=== PATIENT | male | born 1975 | race Caucasian/White ===

== ENCOUNTER 2019-09-02 13:43 | Emergency (ER) | payer BC ==
--- OUTSIDE RECORDS SUMMARY | 2019-09-02 13:45 | XMS REPORT | Summary of Care ---
:1975 Author Organization [facility] - Health Address [address] [place] [address] Care Team Providers Name Role Phone Horacio Paulson MD Primary Care Provider Encounter Details Date Type Department Care Team Description 08/02/2019 Orders Only [facility] Doctor Unassigned, No [address] [facility] [place] [address] [address] [place] [id number] Allergies No Known Allergiesdocumented as of this encounter (statuses as of 08/02/2019) Medications Medication Sig Dispensed Refills Start Date End Date Status HYDROcodone-acetamin Take 1 tablet by 40 tablet 0 01/31/2016 Active ophen (NORCO) 10-325 mouth every 6 (six) mg tablet hours as needed for Pain (scale 4-6). tadalafil (CIALIS) Take 1 tablet by 8 tablet 5 03/15/2016 Active 20 mg tablet mouth as needed for Erectile dysfunction (1 po 1 h prior to sexual activity). fluocinonide (LIDEX) Apply to area(s) 2 15 g 1 03/15/2016 Active 0.05 % cream (two) times daily. azithromycin 250 mg Take 1 tablet by 1 Package 1 07/21/2017 Active tablet mouth SEE-INSTRUCTIONS. Take 500 mg day 1, then 250 mg days 2 to 5. hydrocodone-chlorphe Take 5 mL by mouth 4 oz 0 07/21/2017 Active niramine (TUSSIONEX every 12 (twelve) PENNKINETIC ER) 10-8 hours as needed for mg/5 mL suspension Cough. indomethacin 50 mg Take 1 capsule by 30 capsule 0 07/21/2017 Active capsule mouth 3 (three) times daily with meals. documented as of this encounter (statuses as of 08/02/2019) Active Problems Not on filedocumented as of this encounter (statuses as of 08/02/2019) Social History Tobacco Use Types Packs/Day Years Used Date Never Smoker Alcohol Use Drinks/Week oz/Week Comments Not Asked 0 Standard drinks or equivalent 0.0 Sex Assigned at Date Recorded Not on file Job Start Date Occupation Industry Not on file Not on file Not on file Travel History Travel Start Travel End No recent travel history available. documented as of this encounter Last Filed Vital Signs Not on filedocumented in this encounter Plan of Treatment Date Type Specialty Care Team Description 08/02/2019 Office Visit Family Medicine Horacio Paulson MD [address] [place] [phone] Health Maintenance Due Date Last Done Comments DTaP,Tdap,and Td Vaccines (1 - 02/19/1988 Tdap) INFLUENZA VACCINE (#1) 2019 PNEUMOCOCCAL 0-64 YEARS COMBINED Aged Out No longer eligible based on SERIES patient's age to complete this topic documented as of this encounter Procedures Procedure Name Priority Date/Time Associated Diagnosis Comments ASSIGNMENT OF BENEFITS Routine 08/02/2019 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
--- OUTSIDE RECORDS SUMMARY | 2019-09-02 13:45 | XMS REPORT | Summary of Care ---
:1975 Author Organization [facility] Address [address] [place] [address] Care Team Providers Name Role Phone Horacio Paulson MD Primary Care Provider Reason for Visit Reason Comments Follow-up Encounter Details Date Type Department Care Team Description 08/02/2019 Office Visit [facility] Horacio Paulson MD Anxiety (Primary Dx); Medicine - [address] Erectile dysfunction, unspecified erectile dysfunction type [address] [place] [phone] Allergies No Known Allergiesdocumented as of this encounter (statuses as of 08/02/2019) Medications Medication Sig Dispensed Refills Start End Date Status Date HYDROcodone-aceta Take 1 tablet by 40 tablet 0 Active minophen (NORCO) mouth every 6 6 10-325 mg tablet (six) hours as needed for Pain (scale 4-6). fluocinonide Apply to 15 g 1 Active (LIDEX) 0.05 % area(s) 2 (two) 6 cream times daily. azithromycin 250 Take 1 tablet by 1 Package 1 Active mg tablet mouth 8 SEE-INSTRUCTIONS . Take 500 mg day 1, then 250 mg days 2 to 5. hydrocodone-chlor Take 5 mL by 4 oz 0 Active pheniramine mouth every 12 8 (TUSSIONEX (twelve) hours PENNKINETIC ER) as needed for 10-8 mg/5 mL Cough. suspension indomethacin 50 Take 1 capsule 30 capsule 0 Active mg capsule by mouth 3 8 (three) times daily with meals. FLUoxetine 20 mg Take 1 tablet by 90 tablet 1 Active tabletIndications mouth daily. 0 : Anxiety tadalafil Take 1 tablet by 8 tablet 11 Active (CIALIS) 20 mg mouth as needed 0 tabletIndications for Erectile : Erectile dysfunction (1 dysfunction, po 1 h prior to unspecified sexual erectile activity). dysfunction type tadalafil Take 1 tablet by 8 tablet 5 08/02/19 Discontinued (CIALIS) 20 mg mouth as needed 6 20 (Reorder) tablet for Erectile dysfunction (1 po 1 h prior to sexual activity). FLUoxetine 20 mg Take 20 mg by 0 08/02/19 Discontinued tablet mouth daily. 20 (Reorder) documented as of this encounter (statuses as of 08/02/2019) Active Problems Not on filedocumented as of this encounter (statuses as of 08/02/2019) Social History Tobacco Use Types Packs/Day Years Used Date Never Smoker Smokeless Tobacco: Current User Alcohol Use Drinks/Week oz/Week Comments Not Currently 0 Standard drinks or equivalent 0.0 Sex Assigned at Date Recorded Not on file Job Start Date Occupation Industry Not on file Not on file Not on file Travel History Travel Start Travel End No recent travel history available. documented as of this encounter Last Filed Vital Signs Vital Sign Reading Time Taken Comments Blood Pressure 110/70 08/02/2019 8:05 AM LUGGAGE LINER Pulse 63 08/02/2019 8:05 AM LUGGAGE LINER Temperature - - Respiratory Rate - - Oxygen Saturation 98% 08/02/2019 8:05 AM LUGGAGE LINER Inhaled Oxygen Concentration - - Weight 148.8 kg (328 lb) 08/02/2019 8:05 AM LUGGAGE LINER Height 182.9 cm (6') 08/02/2019 8:05 AM LUGGAGE LINER Body Mass Index 44.48 08/02/2019 8:05 AM LUGGAGE LINER documented in this encounter Progress Notes Horacio Paulson MD - 08/02/2019 8:00 AM CST Cc: anxiety Chief Complaint Patient presents with Follow-up Brodie Styles is a 44 year old male. Anxiety, anger management Allergies Brodie has No Known Allergies. Medications Outpatient Medications Prior to Visit Medication Sig Dispense Refill FLUoxetine 20 mg tablet Take 20 mg by mouth daily. azithromycin 250 mg tablet Take 1 tablet by mouth SEE-INSTRUCTIONS. Take 500 mg day 1, then 250 mg days 2 to 5. 1 Package 1 hydrocodone-chlorpheniramine (TUSSIONEX PENNKINETIC ER) 10-8 mg/5 mL suspension Take 5 mL by mouth every 12 (twelve) hours as needed for Cough. 4 oz 0 indomethacin 50 mg capsule Take 1 capsule by mouth 3 (three) times daily with meals. 30 capsule 0 fluocinonide (LIDEX) 0.05 % cream Apply to area(s) 2 (two) times daily. 15 g 1 tadalafil (CIALIS) 20 mg tablet Take 1 tablet by mouth as needed for Erectile dysfunction (1 po 1 h prior to sexual activity). 8 tablet 5 HYDROcodone-acetaminophen (NORCO) 10-325 mg tablet Take 1 tablet by mouth every 6 (six) hours asneeded for Pain (scale 4-6). 40 tablet 0 No facility-administered medications prior to visit. Histories No past medical history on file. No past surgical history on file. Social History Socioeconomic History Marital status: Spouse name: Not on file Number of children: Not on file Years of education: Not on file Highest education level: Not on file Occupational History Not on file Social Needs Financial resource strain: Not on file Food insecurity: Worry: Not on file Inability: Not on file Transportation needs: Medical: Not on file Non-medical: Not on file Tobacco Use Smoking status: Never Smoker Smokeless tobacco: Current User Substance and Sexual Activity Alcohol use: Not Currently Alcohol/week: 0.0 standard drinks Drug use: Never Sexual activity: Not on file Lifestyle Physical activity: Days per week: Not on file Minutes per session: Not on file Stress: Not on file Relationships Social connections: Talks on phone: Not on file Gets together: Not on file Attends sikhism service: Not on file Active member of club or organization: Not on file Attends meetings of clubs or organizations: Not on file Relationship status: Not on file Intimate partner violence: Fear of current or ex partner: Not on file Emotionally abused: Not on file Physically abused: Not on file Forced sexual activity: Not on file Other Topics Concern Not on file Social History Narrative Not on file No family history on file. Review of Systems Vital Signs BP 110/70 | Pulse 63 | Ht 6' (1.829 m) | Wt 328 lb (148.8 kg) | SpO2 98% | BMI 44.48 kg/m Physical Exam Constitutional: He is oriented to person, place, and time. He appears well- developed and well-nourished. HENT: Head: Normocephalic. Eyes: Pupils are equal, round, and reactive to light. EOM are normal. Cardiovascular: Normal rate, regular rhythm and normal heart sounds. Pulmonary/Chest: Effort normal and breath sounds normal. Abdominal: Soft. Musculoskeletal: Normal range of motion. Neurological: He is alert and oriented to person, place, and time. Vitals reviewed. Assessment/Plan Anxiety. Fluoxitine ED, cialis This visit did not involve counseling and coordination that comprised more than 50% of the visit time.Electronically signed by Horacio Paulson MD at 2019 8:14 AM CSTdocumented in this encounter Plan of Treatment Health Maintenance Due Date Last Done Comments DTaP,Tdap,and Td Vaccines (1 - 02/19/1988 Tdap) INFLUENZA VACCINE (#1) 2019 PNEUMOCOCCAL 0-64 YEARS COMBINED Aged Out No longer eligible based on SERIES patient's age to complete this topic documented as of this encounter Results Not on filedocumented in this encounter Visit Diagnoses Diagnosis Anxiety - Primary Anxiety state, unspecified Erectile dysfunction, unspecified erectile dysfunction type documented in this encounter Insurance Payer Benefit Plan Subscriber ID Effective Dates Phone Address Type / Group [facility] [id number] 2017-Abiola [phone] [address] PPO/POS [place] t [id number] [place] [address] documented as of this encounter"
--- OUTSIDE RECORDS SUMMARY | 2019-09-02 13:45 | XMS REPORT | Summary of Care ---
:1975 Author Organization [facility] Address [address] [place] [address] Care Team Providers Name Role Phone Horacio Paulson MD Primary Care Provider Reason for Visit Reason Comments Follow-up Encounter Details Date Type Department Care Team Description 08/02/[address] [facility] Family Horacio Paulson MD Anxiety (Primary Dx); Medicine - [address] Erectile dysfunction, unspecified erectile dysfunction type [address] [place] [phone] Allergies No Known Allergiesdocumented as of this [...] Comments Blood Pressure 110/70 08/02/2019 8:05 AM EQUIPMENT SERVICES ASSOCIATE Pulse 63 08/02/2019 8:05 AM EQUIPMENT SERVICES ASSOCIATE Temperature - - Respiratory Rate - - Oxygen Saturation 98% 08/02/2019 8:05 AM EQUIPMENT SERVICES ASSOCIATE Inhaled Oxygen Concentration - - Weight 148.8 kg (328 lb) 08/02/2019 8:05 AM EQUIPMENT SERVICES ASSOCIATE Height 182.9 cm (6') 08/02/2019 8:05 AM EQUIPMENT SERVICES ASSOCIATE Body Mass Index 44.48 08/02/2019 8:05 AM EQUIPMENT SERVICES ASSOCIATE documented in this encounter Progress Notes Horacio [...] file Gets together: Not on file Attends protestant service: Not on file Active member of [...] Effective Dates Phone Address Type / Group [facility] [id number] 2017-Abiola [phone] [address] PPO/POS [place] t [id number] [place] [address] documented as of this encounter"
--- OUTSIDE RECORDS SUMMARY | 2019-09-02 13:45 | XMS REPORT | Summary of Care ---
:1975 Author Organization [facility] Address [address] [place] [address] Care Team Providers Name Role Phone Horacio Paulson MD Primary Care Provider Reason for Visit Reason Comments Authorization Encounter Details Date Type Department Care Team Description 08/09/2019 Telephone [facility] Family Horacio Paulson MD Authorization Medicine - [address] [place] [address] [place] [phone] Allergies No Known Allergiesdocumented as of this encounter (statuses as of 08/09/2019) Medications Medication Sig Dispensed Refills Start Date End Date Status HYDROcodone-acetamin Take 1 tablet by 40 tablet 0 01/31/2016 Active ophen (NORCO) 10-325 mouth every 6 (six) mg tablet hours as needed for Pain (scale 4-6). fluocinonide (LIDEX) Apply to area(s) 2 15 [...] mouth 3 (three) times daily with meals. FLUoxetine 20 mg Take 1 tablet by 90 tablet 1 08/02/2019 Active tabletIndications: mouth daily. Anxiety tadalafil (CIALIS) Take 1 tablet by 8 tablet 11 08/02/2019 Active 20 mg mouth as needed for tabletIndications: Erectile Erectile dysfunction (1 po 1 dysfunction, h prior to sexual unspecified erectile activity). dysfunction type documented as of this encounter (statuses as of 08/09/2019) Active Problems Not on filedocumented as of this encounter (statuses as of 08/09/2019) Social History Tobacco Use Types Packs/Day Years [...] filedocumented in this encounter Plan of Treatment Health [...] Effective Dates Phone Address Type / Group [facility] [id number] 2017-Abiola [phone] [address] PPO/POS [place] t [id number] [place] [address] documented as of this encounter
--- OUTSIDE RECORDS SUMMARY | 2019-09-02 13:45 | XMS REPORT ---
:1975 Author Organization [facility] Address [address] [place] [address] Dr. Fonseca [address] [place] [address] Care Team Providers Name Role Phone Unavailable Unavailable Unavailable Problems This patient has no known problems. Allergies, Adverse Reactions, Alerts This patient has no known allergies or adverse reactions. Medications This patient has no known medications.
--- NOTE | 2019-09-02 15:10 | RAD REPORT ---
EXAM DESCRIPTION: CT - Stone Protocol - 09/02/2019 2:53 pm CLINICAL HISTORY: Flank pain. FLANK PAIN COMPARISON: No comparisons TECHNIQUE: Axial images were obtained without oral or IV contrast. Lack of contrast limits solid org an and vascular assessment. The [id number] spans the entirety of the system partially obscuring uppermost abdomen and lung bases. Coronal reformatted images were obtained and reviewed. All CT scans are performed using dose optimization technique as appropriate and may include automated exposure control or mA/KV adjustment according to patient size. FINDINGS: The lower lung gracia are clear. Imaged portions of the liver and spleen show no suspicious findings on non-contrast imaging. The panc reas and adrenal glands are normal. No pathologic lymphadenopathy in the abdomen or pelvis. 10 mm calculus (1170 HU) is present at the right pelvic inlet resulting in mild right hydronephrosis. 6 cm cyst is present right kidney midpole. No bowel obstruction, free air, free fluid or abscess. Normal appendix noted.Small fat containing umb ilical hernia. Chronic bilateral spondylolysis at L4-5 with minimal anterolisthesis. IMPRESSION: 10 mm stone right pelvic inlet resulting in mild right hydronephrosis.
[2019-09-02 15:14] LABS: Urine Blood TRACE (NEG); Urine Glucose NEGATIVE (NEG); Urine Protein NEGATIVE (NEG); Urine pH 6.5 (5.0-7.0)
[2019-09-02] MEDS ORDERED: ONDANSETRON 4 MG/2 ML VIAL ONE (15:53)
[2019-09-02] MEDS ORDERED: Magnesium Sulfate 2gm IVPB 2 G/50 ML BAG IV ONE (15:53)
[2019-09-02] MEDS ORDERED: TAMSULOSIN 0.4 MG SR CAP ONE (15:53)
[2019-09-02] MEDS ORDERED: MORPHINE 4 MG/ML SYR ONE (15:53)
[2019-09-02 16:09] LABS: Absolute Lymphocytes (CBC) 1.5 K/uL (0.7-4.9); Basophils % 0.6 % (0-1.3); Hematocrit 44.6 % (39.6-49.0); Lymphocytes % 12.6 % (15.3-44.8); MPV 7.7 fL (7.6-11.3); RBC Red Blood Cell Count 4.85 M/uL (4.33-5.43)
[2019-09-02 16:21] LABS: Potassium 3.5 mmol/L (3.5-5.1)
--- NOTE | 2019-09-02 17:17 | ER ---
Nurse's Notes [facility] Name: Brodie Styles Age: 44 yrs Sex: Male : 1975 Arrival Date: 09/02/2019 Time: 13:49 Bed 13 Private MD: Horacio Paulson S Diagnosis: Calculus of kidney and ureter Presentation: 09/01 14:01 Chief complaint: Patient states: Right lower back for 4 days. History of kidney stones, ll1 usually passes on its own. No fever. Coronavirus screen: The patient has NOT traveled to a country currently being monitored by the [facility] within the last 14 days. Proceed with normal triage procedures. Ebola Screen: Patient denies travel to an Ebola-affected area in the 21 days before illness onset. Risk Assessment: Do you want to hurt yourself or someone else? Patient reports no desire to harm self or others. 14:01 Method Of Arrival: Ambulatory ll1 14:01 Acuity: JULIANNA 3 ll1 Historical: - Allergies: 14:03 No Known Allergies; ll1 - Immunization history:: Flu vaccine is not up to date. Screenin:30 Abuse screen: Denies threats or abuse. Nutritional screening: No deficits noted. em Tuberculosis screening: No symptoms or risk factors identified. Fall Risk None identified. Assessment: 15:35 General: Appears in no apparent distress. comfortable, Behavior is calm, cooperative, em appropriate for age, Reports chills for >3 days, Denies fever. Pain: Complains of pain in right low back Pain currently is 2 out of 10 on a pain scale. at worst was 10 out of 10 on a pain scale. Neuro: Level of Consciousness is awake, alert, obeys commands, Oriented to person, place, time, situation, Appropriate for age. Cardiovascular: Capillary refill < 3 seconds Patient's skin is warm and dry. Respiratory: Airway is patent Respiratory effort is even, unlabored, Respiratory pattern is regular, symmetrical. GI: Bowel sounds present X 4 quads. Abd is soft and non tender X 4 quads. Patient currently denies nausea, vomiting. : Denies burning with urination. Derm: Skin is intact, is healthy with good turgor, Skin is pink, warm \T\ dry. Musculoskeletal: Capillary refill < 3 seconds, Range of motion: intact in all extremities. Vital Signs: 14:01 BP 150 / 96; Pulse 72; Resp 18; Temp 98.3; Pulse Ox 98% ; Weight 145.15 kg; Height 6 ll1 ft. (182.88 cm); Pain 1/10; 16:00 BP 135 / 90; Pulse 58; Resp 18; Pulse Ox 99% on R/A; Pain 2/10; em 16:45 BP 143 / 90; Pulse 83; Resp 18; Pulse Ox 99% on R/A; em 14:01 Body Mass Index 43.40 (145.15 kg, 182.88 cm) ll1 ED Course: 13:49 Patient arrived in ED. mr 13:49 Horacio Paulson MD is Private Physician. mr 14:03 Triage completed. ll1 14:03 Arm band placed on. ll1 14:33 Nikole Sunshine FNP-C [facility]. kb 14:33 Jose Clay MD is Attending Physician. kb 14:54 CT Stone Protocol In Process Unspecified. EDMS 15:00 Urine collected: clean catch specimen, clear. dh3 15:10 Abdirashid Shields, RN is Primary Nurse. em 15:30 Patient has correct armband on for positive identification. Bed in low position. Call em light in reach. Adult w/ patient. Pulse ox on. NIBP on. 15:57 Initial lab(s) drawn, by me, sent to lab. Inserted saline lock: 20 gauge in right em antecubital area, using aseptic technique. Blood collected. 17:16 Raleigh Fitzgerald MD is Referral Physician. kb 17:27 Abdomen 1 View (KUB) XRAY In Process Unspecified. EDMS 17:37 No provider procedures requiring assistance completed. IV discontinued, intact, em bleeding controlled, No redness/swelling at site. Pressure dressing applied. Administered Medications: 15:58 Drug: Zofran (Ondansetron) 4 mg Route: IVP; Site: right antecubital; em 16:30 Follow up: Response: No adverse reaction em 16:00 Drug: morphine 4 mg Route: IVP; Site: right antecubital; em 16:30 Follow up: Response: No adverse reaction; Marked relief of symptoms; Pain is decreased; em RASS: Alert and Calm (0) 16:00 Drug: Flomax 0.4 mg Route: PO; em 17:38 Follow up: Response: No adverse reaction em 16:03 Drug: Magnesium Sulfate 2 grams Route: IVPB; Infused Over: 1 hrs; Site: right em antecubital; 17:38 Follow up: Response: No adverse reaction; IV Status: Completed infusion; IV Intake: 50mlem Intake: 17:38 IV: 50ml; Total: 50ml. em Outcome: 17:16 Discharge ordered by MD. espinoza 17:37 Discharged to home ambulatory, with family. em 17:37 Condition: good 17:37 Discharge instructions given to patient, family, Instructed on discharge instructions, follow up and referral plans. no drinking with medication, no driving heavy equipment, medication usage, Demonstrated understanding of instructions, follow-up care, medications, Prescriptions given X 4. 17:39 Patient left the ED. em Signatures: Dispatcher [employer] EDNikole Howe, CONCRETE BUCKET HOOKER-C CONCRETE BUCKET HOOKER-Steffany Mireles Abdirashid Shields, RN RN Tricia Cabrales [facility] Edilberto Mitchell RN RN ll1 Corrections: (The following items were deleted from the chart) 16:53 14:03 Arm band placed on Patient placed in an exam room, ll1 ll1
--- NOTE | 2019-09-02 17:17 | EDPHYS ---
Physician Documentation [facility] Name: Brodie Styles Age: 44 yrs Sex: Male : 1975 Arrival Date: 09/02/2019 Time: 13:49 Bed 13 Private MD: Horacio Paulson S ED Physician Jose Clay HPI: 09/01 17:14 This 44 yrs old Male presents to ER via Ambulatory with complaints of kb Possible Kidney Stone. 17:14 The patient complains of pain in the right flank. The pain does not radiate. Onset: The kb symptoms/episode began/occurred last week. Modifying factors: The symptoms are alleviated by nothing. the symptoms are aggravated by nothing. Associated signs and symptoms: The patient has no apparent associated signs or symptoms, Pertinent negatives: fever. Severity of pain: At its worst the pain was moderate in the emergency department the pain is unchanged. The patient has experienced similar episodes in the past. The patient has not recently seen a physician. Historical: - Allergies: 14:03 No Known Allergies; ll1 - Immunization history:: Flu vaccine is not up to date. ROS: 17:13 Constitutional: Negative for fever, chills, and weight loss, Neck: Negative for injury, kb pain, and swelling, Cardiovascular: Negative for chest pain, palpitations, and edema, Respiratory: Negative for shortness of breath, cough, wheezing, and pleuritic chest pain, Abdomen/GI: Negative for abdominal pain, nausea, vomiting, diarrhea, and constipation, Back: Negative for injury and pain, MS/Extremity: Negative for injury and deformity, Skin: Negative for injury, rash, and discoloration, Neuro: Negative for headache, weakness, numbness, tingling, and seizure. 17:13 : Positive for flank pain. Exam: 17:11 Constitutional: This is a well developed, well nourished patient who is awake, alert, kb and in no acute distress. Head/Face: Normocephalic, atraumatic. ENT: Nares patent. No nasal discharge, no septal abnormalities noted. Tympanic membranes are normal and external auditory canals are clear. Oropharynx with no redness, swelling, or masses, exudates, or evidence of obstruction, uvula midline. Mucous membranes moist. Neck: Trachea midline, no thyromegaly or masses palpated, and no cervical lymphadenopathy. Supple, full range of motion without nuchal rigidity, or vertebral point tenderness. No Meningismus. Chest/axilla: Normal chest wall appearance and motion. Nontender with no deformity. No lesions are appreciated. Cardiovascular: Regular rate and rhythm with a normal S1 and S2. No gallops, murmurs, or rubs. Normal PMI, no JVD. No pulse deficits. Respiratory: Lungs have equal breath sounds bilaterally, clear to auscultation and percussion. No rales, rhonchi or wheezes noted. No increased work of breathing, no retractions or nasal flaring. Abdomen/GI: Soft, non-tender, with normal bowel sounds. No distension or tympany. No guarding or rebound. No evidence of tenderness throughout. Skin: Warm, dry with normal turgor. Normal color with no rashes, no lesions, and no evidence of cellulitis. MS/ Extremity: Pulses equal, no cyanosis. Neurovascular intact. Full, normal range of motion. Neuro: Awake and alert, GCS 15, oriented to person, place, time, and situation. Cranial nerves II-XII grossly intact. Motor strength 5/5 in all extremities. Sensory grossly intact. Cerebellar exam normal. Normal gait. 17:11 Back: pain, that is mild, that is moderate, of the right flank, ROM is normal, CVA tenderness, that is mild, is noted on the right. Vital Signs: 14:01 BP 150 / 96; Pulse 72; Resp 18; Temp 98.3; Pulse Ox 98% ; Weight 145.15 kg; Height 6 ll1 ft. (182.88 cm); Pain 1/10; 16:00 BP 135 / 90; Pulse 58; Resp 18; Pulse Ox 99% on R/A; Pain 2/10; em 16:45 BP 143 / 90; Pulse 83; Resp 18; Pulse Ox 99% on R/A; em 14:01 Body Mass Index 43.40 (145.15 kg, 182.88 cm) ll1 MDM: 14:33 Patient medically screened. kb 17:06 Data reviewed: vital signs, nurses notes. Data interpreted: Pulse oximetry: on room air kb is 98 %. Interpretation: normal. Counseling: I had a detailed discussion with the patient and/or guardian regarding: the historical points, exam findings, and any diagnostic results supporting the discharge/admit diagnosis, lab results, radiology results, the need for outpatient follow up, a urologist, to return to the emergency department if symptoms worsen or persist or if there are any questions or concerns that arise at home. 17:11 ED course: Pain controlled. Pt tolerating PO intake. Pt has follow up appt with Dr alexis Fitzgerald tomorrow at 1015. KUB done and sent with pt for follow up appt. Pt will return if needed. 17:20 ED course: TAKER OFF DRYING KILN reviewed. No prescriptions found. kb 09/01 15:06 Order name: Urine Dipstick--Ancillary (enter results); Complete Time: 15:17 em1 09/01 15:51 Order name: CBC with Diff; Complete Time: 16:28 kb 09/01 14:33 Order name: CT Stone Protocol; Complete Time: 15:14 kb 09/01 15:51 Order name: Basic Metabolic Panel; Complete Time: 16:21 kb 09/01 17:10 Order name: Abdomen 1 View (KUB) XRAY kb 09/01 15:51 Order name: IV Start; Complete Time: 16:02 kb Administered Medications: 15:58 Drug: Zofran (Ondansetron) 4 mg Route: IVP; Site: right antecubital; em 16:30 Follow up: Response: No adverse reaction em 16:00 Drug: morphine 4 mg Route: IVP; Site: right antecubital; em 16:30 Follow up: Response: No adverse reaction; Marked relief of symptoms; Pain is decreased; em RASS: Alert and Calm (0) 16:00 Drug: Flomax 0.4 mg Route: PO; em 17:38 Follow up: Response: No adverse reaction em 16:03 Drug: Magnesium Sulfate 2 grams Route: IVPB; Infused Over: 1 hrs; Site: right em antecubital; 17:38 Follow up: Response: No adverse reaction; IV Status: Completed infusion; IV Intake: 50mlem Disposition: 18:36 Co-signature as Attending Physician, Jose Clay MD Signature for administrative ps1 purposes. Did not see or evaluate patient. . Disposition: 09/02/19 17:16 Discharged to Home. Impression: Calculus of kidney and ureter. - Condition is Stable. - Discharge Instructions: Kidney Stones, [id number], Dietary Guidelines to Help Prevent Kidney Stones. - Prescriptions for Tylenol- Codeine #3 300-30 mg Oral Tablet - take 2 tablets by ORAL route every 6 hours As needed; 16 tablet. Zofran 4 mg Oral Tablet - take 1 tablet by ORAL route every 6 hours As needed; 20 tablet. Flomax 0.4 mg Oral Capsule, Sust. Release 24 hr - take 1 capsule by ORAL route once daily 1/2 hour following the same meal each day; 10 capsule. Diclofenac Sodium 75 mg Oral Tablet, Delayed Release (E.C.) - take 1 tablet by ORAL route 2 times per day As needed; 30 tablet. - Medication Reconciliation Form, Thank You Letter, Antibiotic Education, Prescription Opioid Use form. - Follow up: Emergency Department; When: As needed; Reason: Worsening of condition. Follow up: Raleigh Fitzgerald MD; When: Tomorrow; Reason: Recheck today's complaints. Signatures: Dispatcher [employer] EDMS Nikole Sunshine, PELON-C PELON-Abdirashid Finney, RN RN em Jose Clay MD MD ps1 Edilberto Mitchell RN RN ll1 Corrections: (The following items were deleted from the chart) 17:16 17:11 ED course: Pt has follow up appt with Dr Fitzgerald tomorralysa at 1015. KUB done and kb sent with pt for follow up appt. Pt will return if needed. kb 17:39 17:16 09/02/2019 17:16 Discharged to Home. Impression: Calculus of kidney and ureter. em Condition is Stable. Forms are Medication Reconciliation Form, Thank You Letter, Antibiotic Education, Prescription Opioid Use. Follow up: Emergency Department; When: As needed; Reason: Worsening of condition. Follow up: Raleigh Fitzgerald; When: Tomorrow; Reason: Recheck today's complaints. kb
--- NOTE | 2019-09-02 17:33 | RAD REPORT ---
EXAM DESCRIPTION: RAD - Abdomen 1 View (KUB) - 09/02/2019 5:27 pm CLINICAL HISTORY: kidney stone;Abd pain Pain COMPARISON: Stone Protocol dated 09/02/2019 FINDINGS: The bowel gas pattern is non-obstructive. No evidence of free air or pneumatosis. Patient' s right-sided renal calculus is not well visualized on plain radiograph.
[2019-09-02 17:53] VITALS: TEMP 98.3
[2019-09-02 17:55] VITALS: O2SAT 99
[2019-09-02 17:56] VITALS: BP 143/90
== END 2019-09-02 17:39 | disposition home or self-care (01) ==
LOC: ER 13:43
DX: N20.2 Calculus of kidney with calculus of ureter (principal)
CPT/HCPCS: 96365; 85025; 80048; 36415; 81003; 76377; 74176; 74018; 96375; 99284; 96366; J3475; J2405